=== PATIENT | female | born 1960 | race Asian ===

== ENCOUNTER 2018-01-12 12:36 | Day surgery (SDC) | payer OTHER ==
[2018-01-12] MEDS ORDERED: PROPOFOL 60 ML (14:58)
[2018-01-12] MEDS ORDERED: LIDOCAINE 2% (SDV) 5 ML INJ (14:58)
== END 2018-01-12 16:11 | disposition home or self-care (01) ==
LOC: GIL 12:36
DX: Z12.11 Encounter for screening for malignant neoplasm of colon (principal); D12.4 Benign neoplasm of descending colon; K64.8 Other hemorrhoids; K20.9 Esophagitis, unspecified
CPT/HCPCS: 43239; 88305; 88312